=== PATIENT | female | born 1945 | race Caucasian/White ===

== ENCOUNTER 2022-11-05 08:42 | Day surgery (SDC) | payer MEDICARE, OTHER ==
[2022-11-05] MEDS ORDERED: Propofol 1,000 MG/100 ML VIAL IV ONE (10:34)
[2022-11-05 13:31] VITALS: BP 119/67; TEMP 98.4
== END 2022-11-05 11:55 | disposition home or self-care (01) ==
LOC: CSHSDC 08:42
PROVIDERS: ATTEND Specialist
PROC: 5A2204Z Restoration of Cardiac Rhythm, Single (ICD-10-PCS; principal; 2022-11-05)
DX: I48.11 Longstanding persistent atrial fibrillation (principal); I10 Essential (primary) hypertension; E78.2 Mixed hyperlipidemia; J44.9 Chronic obstructive pulmonary disease, unspecified; E66.01 Morbid (severe) obesity due to excess calories; Z68.41 Body mass index [BMI] 40.0-44.9, adult; E03.9 Hypothyroidism, unspecified; G47.30 Sleep apnea, unspecified; Z79.01 Long term (current) use of anticoagulants; Z79.899 Other long term (current) drug therapy; Z79.51 Long term (current) use of inhaled steroids; Z87.891 Personal history of nicotine dependence
CPT/HCPCS: 92960; 93005; 93010; 93312; J2704